=== PATIENT | female | born 1990 | race American Indian/Alaskan Native ===

== ENCOUNTER 2021-12-14 17:29 | Emergency (ER) | payer MEDICAID ==
[2021-12-14 18:01] VITALS: BP 145/77
[2021-12-14] MEDS ORDERED: IBUPROFEN 800 MG TAB PO ONE (18:03)
--- NOTE | 2021-12-14 18:09 | Emergency Department Report ---
ED Lower Extremity HPI - General Chief Complaint: Extremity Injury, Lower Stated Complaint: ANKLE PAIN Time Seen by Provider: 12/14/21 18:03 Source: patient Mode of arrival: Wheelchair Limitations: No Limitations - History of Present Illness Initial Comments: Patient was at work walked on the pavement which was uneven and her foot rolled inward. Now swelling increase pain. Denies any other injuries. Works for [employer]. Complaint: ankle injury -: This afternoon (at 1300. ) Injury: Ankle: Right, Foot: Right Type of Injury: inversion Place: work Severity: severe Severity scale (0 -10): 10 Worsens With: weight bearing, movement, palpation Associated Symptoms: snap/pop sensation, swelling, numbness, tingling - Related Data Previous Rx's Medication Instructions Recorded Last Taken Type Ibuprofen [Motrin 800 MG tab] 800 mg PO Q8HR PRN #30 tablet 12/14/21 Unknown Rx Allergies Allergy/AdvReac Type Severity Reaction Status Date / Time No Known Allergies Allergy Verified 12/14/21 18:01 ED Review of Systems ROS: Stated complaint: ANKLE PAIN Other details as noted in HPI ED Past Medical Hx - Past Medical History Previous Medical History?: No - Surgical History Past Surgical History?: No - Social History Smoking Status: Unknown if ever smoked Substance Use Type: None - Medications Home Medications: Home Medications Medication Instructions Recorded Confirmed Last Taken Type Ibuprofen [Motrin 800 MG tab] 800 mg PO Q8HR PRN #30 tablet 12/14/21 Unknown Rx ED Physical Exam - General Limitations: No Limitations General appearance: alert, in no apparent distress - Head Head exam: Present: atraumatic, normocephalic - Eye Eye exam: Present: normal appearance - Expanded Lower Extremity Exam Right Lower Leg exam: Present: tenderness Ankle exam: Present: tenderness, swelling Foot/Toe exam: Present: normal inspection, tenderness, swelling Neuro vascular tendon exam: Present: no vascular compromise Gait: Positive: unable to bear weight - Neurological Exam Neurological exam: Present: alert, oriented X3 - Psychiatric Psychiatric exam: Present: normal affect, normal mood - Skin Skin exam: Present: warm, dry, intact, normal color. Absent: rash ED Course Vital Signs 12/14/21 17:58 Temperature 99.1 F Pulse Rate 75 Respiratory 18 Rate Blood Pressure 145/77 O2 Sat by Pulse 100 Oximetry ED Lower Extremity MDM - Radiology Data Radiology results: report reviewed [address] [address] XRay Report Signed Patient: AMBER CHACON MR#: [id number] : 1990 Acct:[id number] Age/Sex: 31 / F ADM Date: 12/14/21 Loc: ED Attending Dr: Ordering Physician: MITUL MAYNARD MD Date of Service: 12/14/21 Procedure(s): XR foot 3+V RT Accession Number(s): [id number] cc: MITUL MAYNARD MD Fluoro Time In Minutes: Right foot 3 views INDICATION: Right foot pain IMPRESSION: No discrete fracture of the foot is identified. Signer Name: David James MD Signed: 12/14/2021 6:38 PM Workstation Name: [id number] Transcribed By: JENIFFER Dictated By: David James MD Electronically Authenticated By: David James MD Signed Date/Time: 12/14/211837 DD/ 36 TD/TT: Print [address] [address] XRay Report Signed Patient: AMBER CHACON MR#: [id number] : 1990 Acct:[id number] Age/Sex: 31 / F ADM Date: 12/14/21 Loc: ED Attending Dr: Ordering Physician: MITUL MAYNARD MD Date of Service: 12/14/21 Procedure(s): XR ankle 3+V RT Accession Number(s): [id number] cc: MITUL MAYNARD MD Fluoro Time In Minutes: Right ankle 3 views INDICATION: Right ankle pain after injury IMPRESSION: No fracture or subluxation of the right ankle is identified. Signer Name: David James MD Signed: 12/14/2021 6:38 PM Workstation Name: [id number] Transcribed By: BC Dictated By: David James MD Electronically Authenticated By: David James MD Signed Date/Time: 12/14/211837 DD/ 37 TD/TT: - Medical Decision Making Patient was at work walked on the pavement which was uneven and her foot rolled inward. Now swelling increase pain. Denies any other injuries. Works for [employer]. Xray of ankle and Ibuprofen given. Critical care attestation.: If time is entered above; I have spent that time in minutes in the direct care of this critically ill patient, excluding procedure time. ED Disposition Clinical Impression: Injury of right ankle and foot Qualifiers: Encounter type: initial encounter Qualified Code(s): S99.911A - Unspecified injury of right ankle, initial encounter; S99.921A - Unspecified injury of right foot, initial encounter Ankle sprain Qualifiers: Encounter type: initial encounter Involved ligament of ankle: unspecified ligament Laterality: right Qualified Code(s): S93.401A - Sprain of unspecified ligament of right ankle, initial encounter Disposition: HOME / SELF CARE / HOMELESS Is pt being admited?: No Does the pt Need Aspirin: No Condition: Stable Instructions: How to Use a Stirrup Ankle Brace, [id number], Ankle Sprain, [id number] Additional Instructions: Xray shows no fracture or dislocation. Wear ankle brace take pain meds use Ice on ankle. Follow up with an orthopedics. Prescriptions: Ibuprofen [Motrin 800 MG tab] 800 mg PO Q8HR PRN #30 tablet PRN Reason: Pain , Severe (7-10) Referrals: [facility] [Provider Group] - 3-5 Days Forms: Work/School Release Form(ED) Time of Disposition: 19:35
--- NOTE | 2021-12-14 18:42 | XRay Report ---
Right foot 3 views INDICATION: Right foot pain IMPRESSION: No discrete fracture of the foot is identified. Signer Name: David James MD Signed: 12/14/2021 6:38 PM Workstation Name: [email or web address]
--- NOTE | 2021-12-14 18:42 | XRay Report ---
Right ankle 3 views INDICATION: Right ankle pain after injury IMPRESSION: No fracture or subluxation of the right ankle is identified. Signer Name: David James MD Signed: 12/14/2021 6:38 PM Workstation Name: [employer]
== END 2021-12-14 23:28 | disposition home or self-care (01) ==
LOC: ED 17:29
DX: S93.401A Sprain of unspecified ligament of right ankle, initial encounter (principal); S99.911A Unspecified injury of right ankle, initial encounter; T14.90XA Injury, unspecified, initial encounter; X58.XXXA Exposure to other specified factors, initial encounter; Y93.89 Activity, other specified; Y92.89 Other specified places as the place of occurrence of the external cause; Y99.8 Other external cause status
CPT/HCPCS: 99283